=== PATIENT | female | born 1945 | race Caucasian/White ===

== ENCOUNTER 2017-03-14 14:31 | Outpatient (CLI) | payer OTHER | END 2017-03-14 21:01 | disposition home or self-care (01) | LOC: SMA 14:31 | PROVIDERS: ATTEND Internal Medicine | DX: Z12.31 Encounter for screening mammogram for malignant neoplasm of breast (principal) | CPT/HCPCS: G0202 ==

== ENCOUNTER 2018-07-01 13:50 | Outpatient (CLI) | payer OTHER | END 2018-07-01 17:51 | disposition home or self-care (01) | LOC: SMA 13:50 | PROVIDERS: ATTEND Internal Medicine | DX: Z12.31 Encounter for screening mammogram for malignant neoplasm of breast (principal) | CPT/HCPCS: 77067 ==

== ENCOUNTER 2019-08-10 13:29 | Outpatient (CLI) | payer OTHER | END 2019-08-10 20:02 | disposition home or self-care (01) | LOC: SMA 13:29 | PROVIDERS: ATTEND Internal Medicine | DX: Z12.31 Encounter for screening mammogram for malignant neoplasm of breast (principal) | CPT/HCPCS: 77067 ==

== ENCOUNTER 2020-08-14 12:43 | Outpatient (CLI) | payer OTHER | END 2020-08-14 20:53 | disposition home or self-care (01) | LOC: SMA 12:43 | PROVIDERS: ATTEND Internal Medicine | DX: Z12.31 Encounter for screening mammogram for malignant neoplasm of breast (principal) | CPT/HCPCS: 77067 ==

== ENCOUNTER 2021-08-15 14:56 | Outpatient (CLI) | payer OTHER | END 2021-08-15 20:16 | disposition home or self-care (01) | LOC: SMA 14:56 | PROVIDERS: ATTEND Internal Medicine | DX: Z12.31 Encounter for screening mammogram for malignant neoplasm of breast (principal); R59.0 Localized enlarged lymph nodes | CPT/HCPCS: 77067 ==

== ENCOUNTER 2024-01-27 08:29 | Day surgery (SDC) | payer OTHER ==
[~2024-01-27] VITALS: Ht 162.6 cm; Wt 65.8 kg
[2024-01-27] MEDS ORDERED: MIDAZOLAM HCL 5 MG/5 ML VIAL ONE (10:01)
[2024-01-27] MEDS ORDERED: fentaNYL CITRATE/PF 100 MCG/2 ML AMP ONE (10:01)
[2024-01-27 13:51] VITALS: O2SAT 95
[2024-01-27 16:01] VITALS: BP_SYST 127; PULSE 62; RESP 10
== END 2024-01-27 13:00 | disposition home or self-care (01) ==
LOC: SDS 08:29 → SMU 08:31 → SDS 13:00
PROVIDERS: ATTEND Internal Medicine
DX: R19.7 Diarrhea, unspecified (principal); A04.8 Other specified bacterial intestinal infections; I10 Essential (primary) hypertension; I25.10 Atherosclerotic heart disease of native coronary artery without angina pectoris; E78.5 Hyperlipidemia, unspecified; K21.9 Gastro-esophageal reflux disease without esophagitis; M19.90 Unspecified osteoarthritis, unspecified site; M79.7 Fibromyalgia; Z90.710 Acquired absence of both cervix and uterus; Z87.891 Personal history of nicotine dependence; Z79.899 Other long term (current) drug therapy
CPT/HCPCS: 45378; 99152; G0378; J2250; J3010